=== PATIENT | male | born 1955 | race Caucasian/White ===

== ENCOUNTER 2017-10-01 11:50 | Day surgery (SDC) | payer BC ==
[2017-10-01] MEDS ORDERED: LIDOCAINE 2% MDV (20MG/ML) 20ML VIAL IV ONE (11:51)
[2017-10-01] MEDS ORDERED: PROPOFOL 10 MG/ML VIAL IV ONE (11:51)
--- NOTE | 2017-10-02 12:30 | Operative Note ---
DATE OF SURGERY: 10/01/2017 OPERATION: COLONOSCOPY to the cecum with cold snare polypectomy x1 and cold biopsy forceps polypectomy x2. INDICATION: History of adenomatous polyps. The patient returns at this time after 5 years for surveillance. His last examination was in August 2012. ANESTHESIA: Intravenous sedation was administered by the department of anesthesiology and included Diprivan titrated to effect. PROCEDURE: Following informed consent from this alert individual including a discussion of the risks and benefits of the procedure and an opportunity for the patient to ask questions, the patient was in the left lateral decubitus position. A digital rectal examination was performed. No abnormalities were noted. Following this, the Olympus [id number] video colonoscope was inserted into the rectum without resistance. The rectal mucosa had a normal appearance with normal folds and distensibility. The colonoscope was advanced up through the colon to the level of the cecum without much difficulty. Throughout the bowel the mucosa appeared normal, the folds were normal, and the bowel was fairly well distensible. The preparation was good. Diverticulosis was noted in both the right and left colon. The cecum was defined by noting the appendiceal orifice and ileocecal valve. In the cecum, there was a semi-sessile 6 mm polyp noted which was removed with cold snare polypectomy and suctioned through the colonoscope into a collection trap. There was a diminutive 3 mm polyp noted at the base of the cecum removed with biopsy forceps. The colonoscope was then further withdrawn. No additional changes were noted until the rectum was reached. Again alberts diverticulosis was noted. Within the rectum there was a 4 mm polyp removed with biopsy forceps. Retroflexion in the rectum demonstrated hypertrophied anal papillae with internal hemorrhoids which were moderate in size. The endoscope was straightened and removed. The patient tolerated the procedure well and was returned to the recovery area in stable condition. IMPRESSION: 1. A 6 mm cecal polyp removed with cold snare polypectomy. 2. Diminutive 3 mm polyp removed with biopsy forceps. 3. A 4 mm rectal polyp removed with biopsy forceps. 4. Diverticulosis throughout the bowel. 5. Internal hemorrhoids with hypertrophied papillae. RECOMMENDATIONS: Further recommendations will be forthcoming pending results of pathology obtained today. Follow up will be with Dr. Mehul Gaytan. As always, thank you for allowing me to participate in the care of your patient. CC: Anthony KIRKPATRICK
== END 2017-10-01 14:00 | disposition home or self-care (01) ==
LOC: HOP 11:50
PROVIDERS: ATTEND Internal Medicine Gastroenterology
DX: Z12.11 Encounter for screening for malignant neoplasm of colon (principal); Z86.010 Personal history of colon polyps; D12.0 Benign neoplasm of cecum; K62.1 Rectal polyp; K57.30 Diverticulosis of large intestine without perforation or abscess without bleeding; K64.8 Other hemorrhoids; E11.9 Type 2 diabetes mellitus without complications; I10 Essential (primary) hypertension; Z79.4 Long term (current) use of insulin; E78.00 Pure hypercholesterolemia, unspecified